=== PATIENT | female | born 1955 ===

== ENCOUNTER 2022-05-07 15:28 | Inpatient (IN) ==
[2022-05-07] MEDS ORDERED: Lactated Ringers 1000 ml BAG 1,000 ML IV ONE (16:25)
[2022-05-07 18:23] LABS: ABS Lymphocytes 0.7 10^3/ul (1.0-4.8); ABS Monocytes 0.8 10^3/ul (0-0.8); ABS Neutrophils 18.6 10^3/ul (1.5-7.7); ABS Nucleated RBC 0.1 10^3/ul; Eosinophil % 0.1 %; Hematocrit 28 % (35-47); Hemoglobin 9.1 g/dL (12.0-16.0); Lymphocyte % 3.5 %; Mean Corpuscular HGB Conc 33 g/dL (31-36); Mean Corpuscular Hemoglobin 31 pg (27-31); Mean Corpuscular Volume 93 fL (80-97); Mean Platelet Volume 7.9 fL (7.4-10.4); Nucleated Red Blood Cells % 0.3; Platelet Count 357 10^3/uL (150-450); Red Blood Count 2.95 10^6 /uL (3.70-4.87); Red Cell Distribution Width 18 % (10-15); White Blood Count 20.2 10^3/uL (3.5-10.8)
[2022-05-07 18:45] LABS: High Sens Troponin Baseline 8 pg/mL (<15)
[2022-05-07] MEDS ORDERED: Morphine 4 MG/ML VIAL (1 ml) IV ONE (19:04)
[2022-05-07] MEDS ORDERED: Ondansetron 4 mg VIAL 2 MG/ML 2 ml VIAL IV ONE (19:04)
[2022-05-07 19:16] LABS: ALT 8 U/L (7-52); AST 10 U/L (13-39); Albumin 3.4 g/dL (3.2-5.2); Albumin/Globulin Ratio 1.2 (1-3); Alkaline Phosphatase 69 U/L (35-149); Blood Urea Nitrogen 103 mg/dL (6-24); Calcium 7.4 mg/dL (8.6-10.3); Globulin 2.8 g/dL (2-4); Glucose 116 mg/dL (70-100); Potassium 3.9 mmol/L (3.5-5.0); Sodium 138 mmol/L (135-145); Total Protein 6.2 g/dL (6.4-8.9); eGFR CKD-EPI 16.8 (>60)
[2022-05-07 19:18] LABS: Chloride 115 mmol/L (101-111)
[2022-05-07 19:42] LABS: Anion Gap 16 mmol/L (2-11); CO2 Carbon Dioxide 7 mmol/L (22-32)
[2022-05-07 19:52] LABS: C Reactive Protein 15.26 mg/L (<8.01); Lipase 76 U/L (11.0-82.0)
[2022-05-07 19:56] LABS: Activated Partial Thrombo Time 26.1 seconds (26.0-38.0); INR 1.06 (0.89-1.11)
[2022-05-07 20:07] LABS: High Sensitivity Troponin 1 Hr 9 pg/mL (<15)
[2022-05-07 21:03] LABS: Urine Appearance Clear; Urine Bilirubin Negative (Negative); Urine Blood 1+ (Small) (Negative); Urine Color Yellow; Urine Glucose Negative (Negative); Urine Ketones Negative (Negative); Urine Nitrite Negative (Negative); Urine Protein 1+ (30 mg/dL) (Negative); Urine Specific Gravity 1.015 (1.005-1.030); Urine Urobilinogen 0.2 (Negative) (Negative); Urine pH 5.5 (5.0-9.0)
[2022-05-07 21:14] LABS: Urine Bacteria 1+ (Absent); Urine Red Blood Cell 2+(6-10/hpf) (Absent); Urine Squamous Epithelial Cell Present (Absent); Urine White Blood Cell 3+(>20/hpf) (Absent)
[2022-05-07 21:48] LABS: PO2 Arterial 148 mmHg (80-100)
[2022-05-07 21:57] LABS: PCO2 Arterial <20 mmHg (35-45)
[2022-05-07 22:03] LABS: Fibrinogen 431.8 mg/dL (110.8-404.3)
[2022-05-07 22:14] LABS: LDH 131 U/L (140-271)
[2022-05-07 22:19] LABS: Urine Benzodiazepine Screen None Detected (None Detect); Urine Cannabinoids Screen None Detected (None Detect); Urine Opiates Screen Presumptive Positive (None Detect)
[2022-05-07 22:22] LABS: Urine Potassium Concentration 22.7 mmol/L
[2022-05-07 22:31] LABS: UR Microalbumin (mg/L) 56.7 mg/L; Urine Creatinine 35.97 mg/dL; Urine Microalbumin/Creatinine 157.6 (<31)
[2022-05-08] MEDS ORDERED: Sodium Bicarbonate 8.4% SYR 50 ml SYRINGE IV ONE (00:13)
[2022-05-08] MEDS ORDERED: Morphine 2 MG/ML SYRINGE IV ONE (00:45)
[2022-05-08 00:51] LABS: Alcohol, S < 13 mg/dL (<13)
[2022-05-08] MEDS ORDERED: cefTRIAXone 1 gm/50 mL D5W 1 GM/50 ML BAG IV ONE (00:54)
[2022-05-08] MEDS ORDERED: Lactated Ringers 1000 ml BAG 1,000 ML IV SCH ×2 (01:00→12:00)
[2022-05-08 01:07] LABS: Creatine Kinase 58 U/L (10-223)
[2022-05-08 02:28] LABS: Hepatitis B Surface Antigen Nonreactive (Nonreactive)
[2022-05-08] MEDS ORDERED: Pantoprazole VIAL 40 MG VIAL IV ONE (02:38)
[2022-05-08 02:45] LABS: Hepatitis B Surface Ab Immune (Immune)
[2022-05-08 02:46] LABS: Hepatitis C Antibody Negative (Negative)
[2022-05-08 02:48] LABS: Erythrocyte Sed Rate 44 mm/Hr (0-29)
[2022-05-08 03:49] LABS: Vitamin D Total 25(OH) 18.2 ng/mL (20-50)
[2022-05-08 03:57] LABS: Calcium (PTH Intact) 7.7 mg/dL (8.6-10.3)
[2022-05-08 04:03] LABS: Phosphorus 5.4 mg/dL (2.5-5.0)
[2022-05-08 04:26] LABS: Magnesium 2.6 mg/dL (1.9-2.7)
[2022-05-08 04:32] LABS: Valproic Acid < 13.0 mcg/mL (50-100)
[2022-05-08 05:05] LABS: TSH Ultra Thyroid Stim Horm 2.67 mcIU/mL (0.34-5.60)
[2022-05-08 05:11] LABS: PO2 Arterial 123 mmHg (80-100)
[2022-05-08 05:13] LABS: PCO2 Arterial <20 mmHg (35-45)
[2022-05-08 05:32] LABS: PO2 Arterial 126 mmHg (80-100)
[2022-05-08 05:34] LABS: PCO2 Arterial <20 mmHg (35-45)
[2022-05-08 06:43] LABS: Calcium 7.7 mg/dL (8.6-10.3); Magnesium 2.5 mg/dL (1.9-2.7); Potassium 3.2 mmol/L (3.5-5.0)
[2022-05-08 06:49] LABS: % Iron Saturation 22 % (15-55); Blood Urea Nitrogen 97 mg/dL (6-24); Glucose 102 mg/dL (70-100); Iron 53 ug/dL (50-212); Total Iron Binding Capacity 238 mcg/dL (250-450); Transferrin 170 mg/dL (203-362); Unsaturated Iron Binding 185 ug/dL; eGFR CKD-EPI 22.5 (>60)
[2022-05-08 06:53] LABS: Anion Gap 20 mmol/L (2-11); CO2 Carbon Dioxide 10 mmol/L (22-32); Chloride 117 mmol/L (101-111); Sodium 147 mmol/L (135-145)
[2022-05-08 07:00] LABS: Ferritin 54.4 ng/mL (11-307); Osmolality Serum 335 mOsm/kg (275-295)
[2022-05-08 07:04] LABS: Folate > 20.00 ng/mL (5.90-24.80)
[2022-05-08 07:05] LABS: Vitamin B12 701 pg/mL (180-914)
[2022-05-08] MEDS ORDERED: Potassium Chlor 20 meq TAB.ER PO ONE (07:23)
[2022-05-08] MEDS: SPIRIVA Respimat (tiotropium) 2.5 mcg/inh Inhaler INH SCH (07:26)
[2022-05-08 08:06] LABS: Salicylate < 2.50 mg/dL (<30)
[2022-05-08] MEDS: KCL 20 MEQ/100 ML IVPREMIX 20 MEQ/100 ML BAG IV SCH ×5 (08:19→19:27)
[2022-05-08 08:45] LABS: Hematocrit 24 % (35-47); Hemoglobin 8.2 g/dL (12.0-16.0); Mean Corpuscular HGB Conc 34 g/dL (31-36); Mean Corpuscular Hemoglobin 30 pg (27-31); Mean Corpuscular Volume 91 fL (80-97); Mean Platelet Volume 8.5 fL (7.4-10.4); Platelet Count 326 10^3/uL (150-450); Red Blood Count 2.69 10^6 /uL (3.70-4.87); Red Cell Distribution Width 18 % (10-15); White Blood Count 13.9 10^3/uL (3.5-10.8)
[2022-05-08 08:52] LABS: Osmolality Serum 329 mOsm/kg (275-295)
[2022-05-08 08:59] LABS: ABS Lymphocytes 0.7 10^3/ul (1.0-4.8); ABS Monocytes 0.7 10^3/ul (0-0.8); ABS Neutrophils 12.4 10^3/ul (1.5-7.7); Eosinophil % 0.1 %; Lymphocyte % 5.2 %; Nucleated Red Blood Cells % 0.2
[2022-05-08] MEDS: Ondansetron 4 mg VIAL 2 MG/ML 2 ml VIAL IV PRN (10:49)
[2022-05-08] MEDS ORDERED: Perflutren Lipid Microsphere 3 ML VIAL ONE (10:56)
[2022-05-08] MEDS ORDERED: Potassium Chloride IV 20 MEQ in Lactated Ringers 1000 ml BAG 1,000 ML IVPB SCH ×2 (11:37→12:00)
[2022-05-08] MEDS: Cholecalciferol (VIT D3) 1,000 unit TAB PO SCH (13:03)
[2022-05-08] MEDS: DULoxetine DR 60 mg CAP PO SCH (13:03)
[2022-05-08 13:10] LABS: Venous Bicarbonate HCO3 10.6 mmol/L (24-28)
[2022-05-08 13:51] LABS: Calcium 7.7 mg/dL (8.6-10.3); Potassium 3.5 mmol/L (3.5-5.0); eGFR CKD-EPI 26.9 (>60)
[2022-05-08 14:02] LABS: Urine Appearance Slightly Cloudy; Urine Bilirubin Negative (Negative); Urine Color Yellow; Urine Glucose Negative (Negative); Urine Ketones Negative (Negative); Urine Nitrite Negative (Negative); Urine Protein 1+ (30 mg/dL) (Negative); Urine Urobilinogen 0.2 (Negative) (Negative)
[2022-05-08 14:12] LABS: Urine Bacteria 1+ (Absent); Urine Red Blood Cell 3+(>10/hpf) (Absent); Urine White Blood Cell 3+(>20/hpf) (Absent)
[2022-05-08] MEDS ORDERED: D5W 1000 ml BAG 1,000 ML IV SCH (15:00)
[2022-05-08] MEDS ORDERED: Sodium Bicarb 8.4% Vial 50 ML 150 MEQ in D5W 1000 ml BAG 850 ML IV SCH ×2 (15:00)
[2022-05-08] MEDS: Morphine 2 MG/ML SYRINGE IV PRN ×2 (16:42→20:12)
[2022-05-08 20:43] LABS: Calcium 7.4 mg/dL (8.6-10.3); Magnesium 2.2 mg/dL (1.9-2.7); Potassium 4.5 mmol/L (3.5-5.0)
[2022-05-08] MEDS: Acetaminophen IV 1 GM/100ML 1,000 MG/100 ML BAG IV PRN (21:05)
[2022-05-09 00:01] LABS: PO2 Arterial 126 mmHg (80-100)
[2022-05-09 00:02] LABS: PCO2 Arterial <20 mmHg (35-45)
[2022-05-09] MEDS: Morphine 2 MG/ML SYRINGE IV PRN ×5 (01:47→21:02)
[2022-05-09] MEDS: cefTRIAXone 1 gm/50 mL D5W 1 GM/50 ML BAG IV SCH (01:47)
[2022-05-09] MEDS: Ondansetron 4 mg VIAL 2 MG/ML 2 ml VIAL IV PRN (02:40)
[2022-05-09 06:52] LABS: Venous Bicarbonate HCO3 13.5 mmol/L (24-28)
[2022-05-09 07:04] LABS: Calcium 7.8 mg/dL (8.6-10.3); Magnesium 2.1 mg/dL (1.9-2.7); eGFR CKD-EPI 37.2 (>60)
[2022-05-09 07:30] LABS: Hematocrit 18 % (35-47); Hemoglobin 6.1 g/dL (12.0-16.0); Mean Corpuscular HGB Conc 34 g/dL (31-36); Mean Corpuscular Hemoglobin 30 pg (27-31); Mean Corpuscular Volume 90 fL (80-97); Red Blood Count 2.02 10^6 /uL (3.70-4.87); Red Cell Distribution Width 18 % (10-15); White Blood Count 16.6 10^3/uL (3.5-10.8)
[2022-05-09 07:31] LABS: Mean Platelet Volume 8.1 fL (7.4-10.4); Platelet Count 325 10^3/uL (150-450)
[2022-05-09] MEDS: Acetaminophen IV 1 GM/100ML 1,000 MG/100 ML BAG IV PRN ×2 (07:40→19:57)
[2022-05-09] MEDS: Cholecalciferol (VIT D3) 1,000 unit TAB PO SCH (08:03)
[2022-05-09] MEDS: DULoxetine DR 60 mg CAP PO SCH (08:03)
[2022-05-09] MEDS: SPIRIVA Respimat (tiotropium) 2.5 mcg/inh Inhaler INH SCH (08:46)
[2022-05-09] MEDS ORDERED: Pantoprazole VIAL 40 MG VIAL IV SCH (09:00)
[2022-05-09] MEDS ORDERED: NORMOSOL-R pH 7.4 1000 mL BAG 1,000 ML IV SCH (09:00)
[2022-05-09 11:11] LABS: Hepatitis Be Antigen Negative (Negative)
[2022-05-09] MEDS ORDERED: Naloxone 0.4 mg VIAL 0.4 mg/ml 1 ml VIAL IV PRN (12:24)
[2022-05-09] MEDS ORDERED: Buffered Lidocaine 1% SYRIN 1 ml INTRADERM ONE (12:24)
[2022-05-09] MEDS ORDERED: fentaNYL 100 mcg/2 ml 50 MCG/ML VIAL IV PRN (12:24)
[2022-05-09] MEDS ORDERED: Ondansetron 4 mg VIAL 2 MG/ML 2 ml VIAL IV PRN (12:24)
[2022-05-09] MEDS ORDERED: Lactated Ringers 1000 ml BAG 1,000 ML IV SCH (13:00)
[2022-05-09] MEDS ORDERED: fentaNYL 100 mcg/2 ml 50 MCG/ML VIAL ONE (13:22)
[2022-05-09] MEDS ORDERED: EPINEPHrine SYR 0.1MG/ML 10 ml SYRINGE ONE (13:24)
[2022-05-09 13:55] LABS: DRVVT Screen Ratio 1.16 ratio (<1.20); LAC APTT 26 sec (25 - 37); LAC INR 1.2 (0.9-1.1); Prothrombin Time(LAC) 13.3 sec (9.4 - 12.5)
[2022-05-09] MEDS: Pantoprazole 80 mg in NS BAG 80 MG/250 ML BAG IV SCH ×2 (14:13→23:49)
[2022-05-09 16:32] LABS: Hematocrit 23 % (35-47); Hemoglobin 7.8 g/dL (12.0-16.0); Mean Corpuscular HGB Conc 35 g/dL (31-36); Mean Corpuscular Hemoglobin 31 pg (27-31); Mean Corpuscular Volume 88 fL (80-97); Mean Platelet Volume 7.4 fL (7.4-10.4); Platelet Count 257 10^3/uL (150-450); Red Blood Count 2.57 10^6 /uL (3.70-4.87); Red Cell Distribution Width 16 % (10-15); White Blood Count 17.1 10^3/uL (3.5-10.8)
[2022-05-09 16:49] LABS: Complement C3 108 mg/dL (75 - 175)
[2022-05-09 17:12] LABS: Potassium 3.2 mmol/L (3.5-5.0); eGFR CKD-EPI 45.5 (>60)
[2022-05-09 17:22] LABS: Anisocytosis 1+; Polychromasia 2+
[2022-05-09 17:23] LABS: Burr Cells 1+
[2022-05-09 17:25] LABS: ABS Eosinophils 0.1 10^3/ul (0-0.6); ABS Monocytes 1.3 10^3/ul (0-0.8); ABS Neutrophils 14.6 10^3/ul (1.5-7.7); ABS Nucleated RBC 0.1 10^3/ul; Eosinophil % 0.9 %; Lymphocyte % 6.1 %; Nucleated Red Blood Cells % 0.3
[2022-05-09] MEDS ORDERED: Potassium Chlor 20 meq TAB.ER PO ONE ×2 (18:15→22:00)
[2022-05-09 23:58] LABS: Hematocrit 22 % (35-47); Hemoglobin 7.3 g/dL (12.0-16.0)
[2022-05-10] MEDS: Morphine 2 MG/ML SYRINGE IV PRN ×7 (00:29→23:10)
[2022-05-10] MEDS: cefTRIAXone 1 gm/50 mL D5W 1 GM/50 ML BAG IV SCH (02:21)
[2022-05-10 04:43] LABS: Hematocrit 21 % (35-47); Hemoglobin 7.4 g/dL (12.0-16.0); Mean Corpuscular HGB Conc 36 g/dL (31-36); Mean Corpuscular Hemoglobin 31 pg (27-31); Mean Corpuscular Volume 87 fL (80-97); Mean Platelet Volume 7.3 fL (7.4-10.4); Platelet Count 273 10^3/uL (150-450); Red Cell Distribution Width 17 % (10-15); White Blood Count 14.6 10^3/uL (3.5-10.8)
[2022-05-10 04:50] LABS: ABS Basophils 0.1 10^3/ul (0-0.2); ABS Eosinophils 0.4 10^3/ul (0-0.6); ABS Lymphocytes 1.1 10^3/ul (1.0-4.8); ABS Monocytes 0.9 10^3/ul (0-0.8); ABS Neutrophils 12.1 10^3/ul (1.5-7.7); ABS Nucleated RBC 0.1 10^3/ul; Eosinophil % 2.8 %; Lymphocyte % 7.3 %; Nucleated Red Blood Cells % 0.3
[2022-05-10 05:07] LABS: Albumin 2.9 g/dL (3.2-5.2); Albumin/Globulin Ratio 1.3 (1-3); Calcium 8.6 mg/dL (8.6-10.3); Globulin 2.2 g/dL (2-4); Phosphorus 2.4 mg/dL (2.5-5.0); Potassium 3.5 mmol/L (3.5-5.0); Total Bilirubin 0.2 mg/dL (0.2-1.0); Total Protein 5.1 g/dL (6.4-8.9); eGFR CKD-EPI 47.2 (>60)
[2022-05-10] MEDS: Acetaminophen IV 1 GM/100ML 1,000 MG/100 ML BAG IV PRN ×2 (06:10→12:33)
[2022-05-10] MEDS: SPIRIVA Respimat (tiotropium) 2.5 mcg/inh Inhaler INH SCH (07:10)
[2022-05-10] MEDS: DULoxetine DR 60 mg CAP PO SCH (08:27)
[2022-05-10] MEDS: Cholecalciferol (VIT D3) 1,000 unit TAB PO SCH (08:27)
[2022-05-10] MEDS ORDERED: Potassium Phosphate IV 10 MMOLE in NS 0.9% 250 ml 250 ML IVPB ONE (09:30)
[2022-05-10] MEDS: Pantoprazole 80 mg in NS BAG 80 MG/250 ML BAG IV SCH ×2 (10:00→22:45)
[2022-05-10] MEDS ORDERED: Albuterol 2.5mg/3 ml (0.083%) NEB.SOLN INH PRN (10:00)
[2022-05-10] MEDS: Sucralfate 1 gm SUSP 1 GM/10 ML UDC PO SCH ×2 (10:33→18:12)
[2022-05-10 13:22] LABS: Hematocrit 23 % (35-47); Hemoglobin 7.7 g/dL (12.0-16.0)
[2022-05-10] MEDS: Ondansetron 4 mg VIAL 2 MG/ML 2 ml VIAL IV PRN ×2 (16:28→20:09)
[2022-05-11] MEDS: cefTRIAXone 1 gm/50 mL D5W 1 GM/50 ML BAG IV SCH (02:42)
[2022-05-11] MEDS: Morphine 2 MG/ML SYRINGE IV PRN ×6 (03:30→22:40)
[2022-05-11] MEDS: Ondansetron 4 mg VIAL 2 MG/ML 2 ml VIAL IV PRN ×2 (03:30→11:07)
[2022-05-11 05:57] LABS: Calcium 9.3 mg/dL (8.6-10.3); Magnesium 1.7 mg/dL (1.9-2.7); Phosphorus 2.5 mg/dL (2.5-5.0); Potassium 3.1 mmol/L (3.5-5.0); eGFR CKD-EPI 52.6 (>60)
[2022-05-11] MEDS: SPIRIVA Respimat (tiotropium) 2.5 mcg/inh Inhaler INH SCH (07:15)
[2022-05-11] MEDS ORDERED: Magnesium Sulfate 2 gm BAG 2 GM/50 ML BAG IVPB ONE (07:45)
[2022-05-11] MEDS: Sucralfate 1 gm SUSP 1 GM/10 ML UDC PO SCH ×3 (07:58→16:31)
[2022-05-11] MEDS: Cholecalciferol (VIT D3) 1,000 unit TAB PO SCH (07:59)
[2022-05-11] MEDS: Pantoprazole 80 mg in NS BAG 80 MG/250 ML BAG IV SCH ×2 (08:21→18:50)
[2022-05-11 09:29] LABS: Hematocrit 22 % (35-47); Hemoglobin 7.8 g/dL (12.0-16.0); Mean Corpuscular HGB Conc 36 g/dL (31-36); Mean Corpuscular Hemoglobin 32 pg (27-31); Mean Corpuscular Volume 89 fL (80-97); Mean Platelet Volume 7.4 fL (7.4-10.4); Platelet Count 296 10^3/uL (150-450); Red Blood Count 2.49 10^6 /uL (3.70-4.87); Red Cell Distribution Width 17 % (10-15)
[2022-05-11] MEDS: KCL 20 MEQ/100 ML IVPREMIX 20 MEQ/100 ML BAG IV SCH ×3 (11:16→16:16)
[2022-05-11] MEDS: DULoxetine DR 60 mg CAP PO SCH (11:18)
[2022-05-11 12:07] LABS: ABS Eosinophils 0.7 10^3/ul (0-0.6); ABS Lymphocytes 1.3 10^3/ul (1.0-4.8); Eosinophil % 4.5 %; Lymphocyte % 8.5 %; Nucleated Red Blood Cells % 0.3
[2022-05-12] MEDS: Morphine 2 MG/ML SYRINGE IV PRN ×7 (01:49→22:53)
[2022-05-12] MEDS: Ondansetron 4 mg VIAL 2 MG/ML 2 ml VIAL IV PRN ×4 (01:49→22:53)
[2022-05-12] MEDS: cefTRIAXone 1 gm/50 mL D5W 1 GM/50 ML BAG IV SCH (03:32)
[2022-05-12] MEDS: Pantoprazole 80 mg in NS BAG 80 MG/250 ML BAG IV SCH ×3 (04:52→22:49)
[2022-05-12] MEDS: SPIRIVA Respimat (tiotropium) 2.5 mcg/inh Inhaler INH SCH (07:25)
[2022-05-12] MEDS: Sucralfate 1 gm SUSP 1 GM/10 ML UDC PO SCH ×3 (07:46→17:03)
[2022-05-12] MEDS: DULoxetine DR 60 mg CAP PO SCH (07:53)
[2022-05-12] MEDS: Cholecalciferol (VIT D3) 1,000 unit TAB PO SCH (07:53)
[2022-05-12 09:58] LABS: Hematocrit 22 % (35-47); Hemoglobin 7.3 g/dL (12.0-16.0); Mean Corpuscular HGB Conc 34 g/dL (31-36); Mean Corpuscular Hemoglobin 30 pg (27-31); Mean Corpuscular Volume 90 fL (80-97); Mean Platelet Volume 7.5 fL (7.4-10.4); Platelet Count 309 10^3/uL (150-450); Red Blood Count 2.42 10^6 /uL (3.70-4.87); Red Cell Distribution Width 17 % (10-15); White Blood Count 13.1 10^3/uL (3.5-10.8)
[2022-05-12 10:27] LABS: Albumin 3.1 g/dL (3.2-5.2); Albumin/Globulin Ratio 1.5 (1-3); Calcium 9.6 mg/dL (8.6-10.3); Globulin 2.1 g/dL (2-4); Magnesium 1.7 mg/dL (1.9-2.7); Potassium 3.1 mmol/L (3.5-5.0); Total Bilirubin 0.2 mg/dL (0.2-1.0); Total Protein 5.2 g/dL (6.4-8.9); eGFR CKD-EPI 55.5 (>60)
[2022-05-12 11:21] LABS: ABS Eosinophils 0.9 10^3/ul (0-0.6); ABS Neutrophils 10.2 10^3/ul (1.5-7.7); Eosinophil % 6.6 %; Lymphocyte % 7.7 %; Nucleated Red Blood Cells % 0.2
[2022-05-12] MEDS: KCL 20 MEQ/100 ML IVPREMIX 20 MEQ/100 ML BAG IV SCH ×3 (12:37→18:30)
[2022-05-12] MEDS ORDERED: Magnesium Sulfate IV 3 GM in NS 0.9% 100 ml BAG 100 ML IVPB ONE (14:31)
[2022-05-13] MEDS: Morphine 2 MG/ML SYRINGE IV PRN ×2 (01:55→05:32)
[2022-05-13] MEDS: cefTRIAXone 1 gm/50 mL D5W 1 GM/50 ML BAG IV SCH (02:01)
[2022-05-13] MEDS: Ondansetron 4 mg VIAL 2 MG/ML 2 ml VIAL IV PRN ×3 (05:32→20:15)
[2022-05-13 06:00] LABS: Hematocrit 22 % (35-47); Hemoglobin 7.3 g/dL (12.0-16.0); Mean Corpuscular HGB Conc 33 g/dL (31-36); Mean Corpuscular Hemoglobin 30 pg (27-31); Mean Corpuscular Volume 91 fL (80-97); Mean Platelet Volume 7.4 fL (7.4-10.4); Platelet Count 328 10^3/uL (150-450); Red Blood Count 2.46 10^6 /uL (3.70-4.87); Red Cell Distribution Width 17 % (10-15); White Blood Count 12.9 10^3/uL (3.5-10.8)
[2022-05-13 06:39] LABS: Albumin/Globulin Ratio 1.6 (1-3); Calcium 9.5 mg/dL (8.6-10.3); Globulin 1.9 g/dL (2-4); Magnesium 2.1 mg/dL (1.9-2.7); Potassium 3.4 mmol/L (3.5-5.0); Total Bilirubin 0.2 mg/dL (0.2-1.0); Total Protein 4.9 g/dL (6.4-8.9); eGFR CKD-EPI 53.8 (>60)
[2022-05-13 06:41] LABS: ABS Eosinophils 1.2 10^3/ul (0-0.6); ABS Lymphocytes 1.4 10^3/ul (1.0-4.8); ABS Neutrophils 9.3 10^3/ul (1.5-7.7); Eosinophil % 9.4 %; Lymphocyte % 10.6 %; Nucleated Red Blood Cells % 0.1
[2022-05-13] MEDS ORDERED: Potassium Chlor 20 meq TAB.ER PO ONE (07:32)
[2022-05-13] MEDS: SPIRIVA Respimat (tiotropium) 2.5 mcg/inh Inhaler INH SCH (07:33)
[2022-05-13] MEDS: Cholecalciferol (VIT D3) 1,000 unit TAB PO SCH (07:45)
[2022-05-13] MEDS: DULoxetine DR 60 mg CAP PO SCH (07:46)
[2022-05-13] MEDS: Sucralfate 1 gm SUSP 1 GM/10 ML UDC PO SCH ×2 (07:46→12:36)
[2022-05-13] MEDS: Pantoprazole 80 mg in NS BAG 80 MG/250 ML BAG IV SCH (08:00)
[2022-05-13] MEDS: Lidocaine PATCH 5% PATCH TRANSDERM SCH (17:40)
[2022-05-14] MEDS: Ondansetron 4 mg VIAL 2 MG/ML 2 ml VIAL IV PRN ×3 (01:35→14:58)
[2022-05-14 06:11] LABS: Hematocrit 23 % (35-47); Hemoglobin 7.3 g/dL (12.0-16.0); Mean Corpuscular HGB Conc 33 g/dL (31-36); Mean Corpuscular Hemoglobin 30 pg (27-31); Mean Corpuscular Volume 93 fL (80-97); Mean Platelet Volume 7.7 fL (7.4-10.4); Platelet Count 323 10^3/uL (150-450); Red Blood Count 2.43 10^6 /uL (3.70-4.87); Red Cell Distribution Width 17 % (10-15); White Blood Count 11.7 10^3/uL (3.5-10.8)
[2022-05-14 06:48] LABS: Calcium 9.7 mg/dL (8.6-10.3); Magnesium 1.9 mg/dL (1.9-2.7); Potassium 3.8 mmol/L (3.5-5.0); eGFR CKD-EPI 46.8 (>60)
[2022-05-14] MEDS: SPIRIVA Respimat (tiotropium) 2.5 mcg/inh Inhaler INH SCH (07:32)
[2022-05-14] MEDS: Cholecalciferol (VIT D3) 1,000 unit TAB PO SCH (08:29)
[2022-05-14] MEDS: DULoxetine DR 60 mg CAP PO SCH (08:30)
[2022-05-14 11:54] VITALS: BP 106/53
[2022-05-14] MEDS: Lidocaine PATCH 5% PATCH TRANSDERM SCH (11:56)
[2022-05-15 19:28] LABS: Helicobacter pylori Result Not Detected; Specimen Source STOOL
== END 2022-05-14 16:06 | disposition home or self-care (01) | DRG 640 ==
LOC: ED 15:28 → EDHOLD 23:38 → SUATTDRO 23:38 → MEDTELE 05-08 03:05 → ICU 05-08 15:00 → MEDTELE 05-10 08:28
PROVIDERS: ADMIT Student in an Organized Health Care Education/Training Program; ATTEND Internal Medicine
PROC: O.GIEGD (2022-05-09 14:25)